=== PATIENT | male | born 1950 | race Caucasian/White ===

== ENCOUNTER 2023-05-13 10:45 | Outpatient (OUT) | payer MEDICARE, BC, SELFPAY ==
[2023-05-13 11:23] LABS: Basophils Absolute Auto 0.1 10^3/uL (0.0-0.1); Basophils Percent Auto 0.8 % (0.2-2.0); Eosinophils Absolute Auto 0.3 10^3/uL (0.0-0.7); Eosinophils Percent Auto 4.6 % (0.9-7.0); Hematocrit 48.9 % (42.0-54.0); Hemoglobin 16.6 g/dL (14.0-18.0); Immature Granulocytes Abs Auto 0.01 10^3/uL (0.00-0.03); Immature Granulocytes Pct Auto 0.2 % (0.0-0.5); Lymphocytes Absolute Auto 1.8 10^3/uL (1.2-3.8); Lymphocytes Percent Auto 26.9 % (20.5-60.0); Mean Corpuscular HGB Conc 33.9 g/dL (29.9-35.2); Mean Corpuscular Hemoglobin 30.8 pg (25.9-34.0); Mean Corpuscular Volume 90.7 fL (80.0-94.0); Mean Platelet Volume 10.1 fL (9.5-13.5); Monocytes Absolute Auto 0.5 10^3/uL (0.3-0.8); Monocytes Percent Auto 8.2 % (1.7-12.0); Neutrophils Absolute Auto 3.9 10^3/uL (1.4-6.5); Neutrophils Percent Auto 59.3 % (43.0-75.0); Platelet Count 257 10^3/uL (150-450); Red Blood Count 5.39 10^6/uL (4.70-6.10); Red Cell Distribution Width 12.2 % (11.0-15.0); White Blood Count 6.6 10^3/uL (4.0-11.0)
[2023-05-13 12:47] LABS: Anion Gap 11.9; BUN Creatinine Ratio 17.4; Calcium 9.5 mg/dL (8.5-10.1); Chloride 101 mmol/L (98-107); Estimated GFR (African America >60 (>=60); Estimated GFR (Non-African Ame >60 (>=60); Glucose 82 mg/dL (74-106); Potassium 3.9 mmol/L (3.5-5.1); Sodium 134 mmol/L (136-145)
[2023-05-13 13:38] LABS: Prostate Specific Antigen Scrn 1.19 ng/mL (<=4.00)
== END 2023-05-13 10:46 | disposition home or self-care (01) ==
LOC: LAB 10:49
PROVIDERS: PCP Internal Medicine; Visit Provider Internal Medicine
DX: Z12.5 Encounter for screening for malignant neoplasm of prostate (principal); I10 Essential (primary) hypertension; Z79.899 Other long term (current) drug therapy
CPT/HCPCS: 36415; 80048; 85025; G0103

== ENCOUNTER 2024-01-17 09:21 | Outpatient (OUT) | payer MEDICARE, BC, SELFPAY ==
--- NOTE | 2024-01-17 | XR_ITS ---
[facility] [id number] Patient Name: JG MCCLAIN MRN: [id number] date: 1950 Sex: M Assigned Patient Location: [facility] Current Patient Location: Accession/Order Number: [id number] Exam Date: 01/17/2024 09:45 Report Date: 01/19/2024 05:07 At the request of: RIKI LLANOS Procedure: XR hip LT 2V w/ pelvis PROCEDURE: XR hip LT 2V w/ pelvis HISTORY: Pain of left hip, low back pain COMPARISON: None. FINDINGS: BONES:Mild narrowing of the superior aspect of the left hip joint space compared to the right. Small degenerative osteophytes along the rim of the acetabulum bilaterally. No fracture dislocation. SOFT TISSUES:No visible soft tissue swelling. EFFUSION:None visible. OTHER: Negative. XR/XR hip LT 2V w/ pelvis IMPRESSION: 1. 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 Electronically authenticated by: LICO NIELSEN Date: 01/19/2024 05:07
--- NOTE | 2024-01-17 | XR_ITS ---
[facility] [id number] Patient Name: JG MCCLAIN MRN: [id number] date: 1950 Sex: M Assigned Patient Location: [facility] Current Patient Location: Accession/Order Number: [id number] Exam Date: 01/17/2024 09:45 Report Date: 01/19/2024 05:12 At the request of: RIKI LLANOS Procedure: XR lumbar spine 6V w bending EXAMINATION: XR lumbar spine 6V w bending HISTORY: M25.552 PAIN OF LEFT HIP, M54.50 LOW BACK PAIN COMPARISON: No relevant comparison available. FINDINGS: BONES: Mild grade 1 retrolisthesis of L2 on 3 and L3 on 4; stable between neutral, flexion, extension. Minimal grade 1 anterior listhesis of L4 on 5 which increases very slightly during flexion. No compression fracture or bone lesion. Mild degenerative facet arthropathy L4-L5, L5-S1. DISC SPACES: Slight narrowing L2-L3, L3-L4. Complete loss at L5-S1. PARASPINOUS: Negative. No paraspinous abnormality is seen. OTHER: Negative. XR/XR lumbar spine 6V w bending IMPRESSION: 1. Multilevel mild degenerative changes detailed above. 2. L5-S1 complete loss of disc space versus developmental partial sacralization. Electronically authenticated by: LICO NIELSEN Date: 01/19/2024 05:12
== END 2024-01-17 09:22 | disposition home or self-care (01) ==
LOC: RAD 09:23
PROVIDERS: PCP Internal Medicine; Visit Provider Internal Medicine
DX: M25.552 Pain in left hip (principal); M54.50 Low back pain, unspecified; M51.36 Other intervertebral disc degeneration, lumbar region
CPT/HCPCS: 72114; 73502

== ENCOUNTER 2024-02-14 09:11 | Outpatient (RCR) | payer MEDICARE, BC, SELFPAY | END 2024-02-28 12:24 | disposition home or self-care (01) | LOC: PT 09:11 | PROVIDERS: PCP Internal Medicine; Visit Provider Internal Medicine | DX: M54.50 Low back pain, unspecified (principal); M47.9 Spondylosis, unspecified; M16.9 Osteoarthritis of hip, unspecified | CPT/HCPCS: 97110; 97140; 97161; G0283 ==

== ENCOUNTER 2024-05-18 07:53 | Outpatient (OUT) | payer MEDICARE, BC, SELFPAY ==
--- OUTSIDE RECORDS SUMMARY | 2024-05-18 08:05 | XMS_ITS | CCD ---
Author Organization [facility] CliniSyvt Care Team Providers Care Law Professor Name Role Phone JONG, DR LYN Primary Care Unavailable BALL, DR LYN Admitting Unavailable BALL, DR LYN Attending Unavailable BALL, DR LYN Consulting Unavailable BALL, DR LYN Primary Care Unavailable ZIEBER, DR LICO Webb Consulting Unavailable MIGUELANGEL DC, DR SAMMIE Reeder Attending Unavailevy e MIGUELANGEL DC, DR SAMMIE Reeder Admitting Unavailabl e MIGUELANGEL DC, DR SAMMIE Reeder Consulting Unavailabl e JONG, DR LYN Primary Care Unavailable REQUEST, DR COLE LISTED Attending Unavaila ble REQUEST, DR COLE LISTED Consulting Unavaila ble REQUEST, DR COLE LISTED Admitting Unavaila ble Jong, Constantino Unavailable Allergies Allergy Classification Reported Allergen(s) Allergy Type Date of Onset Reaction(s) Facility (1 source) Sulfonamides (Antibiotic) Drug allergy (disorder) 02-03-20 13 [facility] Repository (10 sources) Ciprofloxacin; Translations: [ciprofloxacin] Drug Allergy 01-30-20 13 Unknown, Unknown Reaction [facility] Comment on above: Onset Date: 01/30/20 13 (5 sources) Substance with sulfonamide structure and antibacterial mechanism of action (substance) Drug allergy Unknown [employer] Other (3 sources) Sulf-10 Drug allergy 01-30-20 13 Unknown [employer] Other (2 sources) Sulfonamides (Antibiotic) Allergy to substance 01-17-20 24 [facility] Medications Current Medications Medication Drug Class(es) Dates Sig (Normalized) Sig (Original) sildenafil 100 mg oral tablet (5 sources) Phosphodiesterase 5 Inhibitor take 1 tablet by mouth every twenty-four hours Sildenafil Citrate 100 MG 1 tablet Orally Once a day for 30 days Active take 1 tablet by ángela th every twenty-four hours Sildenafil Citrate 20 MG 1 tablet Orally Once a day Active Completed/Discontinued Medications Medication Drug Class(es) Dates Sig (Normalized) Sig (Original) acetaminophen 325 mg / oxyCODONE hydrochloride 5 mg oral tablet (2 sources) Opioid Agonist Start: 07-16-2019 End: 09-25-2023 Oxycodone-Acetamin ophen 5-325 mg tablet Discontinued 5 MG PO As Directed as needed for Pain July 15, 2019 11:00pm September 25, 2023 7:33am cephalexin 500 mg oral capsule (2 sources) Cephalosporin Antibacterial Start: 07-16-2019 End: 09-25-2023 take 1 capsule by mouth every twelve hours Cephalexin 500 mg capsule Discontinued 500 MG PO Q12H July 16, 2019 4:00pm September 25, 2023 7:33am cycloSPORINE 0.5 mg/ml ophthalmic suspension (5 sources) Calcineurin Inhibitor Immunosuppressant take 1 drop(s) into the eye(s) twice daily as needed Restasis 0.05 % 1 drop into affected eye Ophthalmic Twice a day Not-Taking/PRN hydrocortisone 10 mg/ml / neomycin 3.5 mg/ml / polymyxin b 02309 unt/ml otic suspension (2 sources) Aminoglycoside Antibacterial, Polymyxin-class Antibacterial, Corticosteroid Start: 07-16-2019 End: 01-17-2024 Neomycin-Polymyxin -Hc 3.5-10,000-1 mg/mL-unit/mL-% drops,suspension Discontinued 3.5 MG OTIC As Directed July 15, 2019 11:00pm January 17, 2024 7:36am ibuprofen 600 mg oral tablet (2 sources) Nonsteroidal Anti-inflammatory Drug Start: 07-16-2019 End: 01-17-2024 Ibuprofen 600 mg tablet Discontinued 600 MG PO As Directed as needed for Pain July 15, 2019 11:00pm January 17, 2024 7:37am ketorolac tromethamine 10 mg oral tablet (2 sources) Nonsteroidal Anti-inflammatory Drug, Cyclooxygenase Inhibitor Start: 07-16-2019 End: 01-17-2024 take 1 tablet by mouth every six hours as needed for pain Ketorolac 10 mg tablet Discontinued 10 MG PO Q6H as needed for pain 20 15 July 15, 2019 11:00pm January 17, 2024 7:37am losartan potassium 100 mg oral tablet (11 sources) Angiotensin 2 Receptor Leanne Start: 07-16-2019 End: 09-25-2023 take 1 tablet by mouth once daily Losartan 100 mg tablet Discontinued 100 MG PO Daily 90 90 September 25, 2023 7:32am September 25, 2023 11:47am nitrofurantoin, macrocrystals 25 mg / nitrofurantoin, monohydrate 75 mg oral capsule (2 sources) Nitrofuran Antibacterial Start: 07-16-2019 End: 09-25-2023 Nitrofurantoin Monohyd/M-Cryst 100 mg capsule Discontinued 100 MG PO As Directed July 15, 2019 11:00pm September 25, 2023 7:33am ondansetron 8 mg disintegrating oral tablet (2 sources) Serotonin-3 Receptor Antagonist Start: 07-16-2019 End: 01-17-2024 Ondansetron 8 mg tablet,disintegrat ing Discontinued 8 MG PO As Directed July 15, 2019 11:00pm January 17, 2024 7:37am predniSONE 20 mg oral tablet (2 sources) Start: 01-17-2024 End: 05-14-2024 Prednisone 20 mg tablet Discontinued 20 MG PO As Directed January 16, 2024 11:00pm May 14, 2024 9:00am 1 tab tid w/ food x 3 days, then bid w/ food x 3 days, then qd w/ food x 3 days tamsulosin hydrochloride 0.4 mg oral capsule (2 sources) alpha-Adrenergic Leanne Start: 07-16-2019 End: 01-17-2024 take 1 capsule by mouth once daily Tamsulosin 0.4 mg capsule Discontinued 0.4 MG PO Daily July 15, 2019 11:00pm January 17, 2024 7:37am Problems Active Problems Problem Classification Problem Date Documented Date Episodic/Chronic Abdominal pain (6 sources) Right lower quadrant pain; Translations: [Right lower quadrant pain] Onset: 08-19-2014 Episodic Asthma (16 sources) Mild intermittent asthma; Translations: [Mild intermittent asthma, uncomplicated] Onset: [birth year]06-1957 Chronic Calculus of urinary tract (16 sources) Calculus of kidney; Translations: [History of calculus of kidney] Onset: 07-07-2020 Episodic Conditions associated with dizziness or vertigo (3 sources) Benign paroxysmal positional vertigo; Translations: [Benign paroxysmal vertigo, unspecified ear] Episodic Disorders of lipid metabolism (1 source) Hypercholesterolemia; Translations: [Pure hypercholesterolemia, unspecified] 05-14-2024 Chronic Diverticulosis and diverticulitis (9 sources) Diverticulosis of colon; Translations: [Diverticulosis of colon] Onset: 10-26-2014 Chronic Esophageal disorders (6 sources) Esophageal reflux finding; Translations: [Esophageal reflux] Onset: 08-06-2013 Chronic Essential hypertension (20 sources) Essential (primary) hypertension; Translations: [Essential hypertension] Onset: 01-20-2013 Chronic Genitourinary symptoms and ill-defined conditions (4 sources) Other microscopic hematuria; Translations: [Dysuria] Onset: 07-12-2020 Episodic Hyperplasia of prostate (10 sources) Benign prostatic hyperplasia with lower urinary tract symptoms; Translations: [Benign prostatic hypertrophy with outflow obstruction] Onset: 01-18-2016 Chronic Immunizations and screening for infectious disease (3 sources) Vaccination given; Translations: [Encounter for immunization] Episodic Other aftercare (2 sources) Other intermediate (current) drug therapy; Translations: [OTH [employer]CR[employer]ING [employer] DRIVER CURRENT DRUG THERAPY] Onset: 05-10-2021 Episodic Other aftercare (3 sources) Long-term current use of drug therapy; Translations: [Other longitudinal float operator (current) drug therapy] Episodic Other aftercare (1 source) Drug therapy finding; Translations: [Other longitudinal float operator (current) drug therapy] 05-14-2024 Episodic Other injuries and conditions due to external causes (3 sources) History of fall; Translations: [History of falling] Episodic Other male genital disorders (5 sources) Impotence of organic origin; Translations: [Erectile dysfunction due to arterial insufficiency] Chronic Other male genital disorders (2 sources) Erectile dysfunction due to arterial insufficiency Chronic Other non-traumatic joint disorders (2 sources) Hip pain; Translations: [Pain in left hip] 01-17-2024 Episodic Other non-traumatic joint disorders (1 source) Pain in left hip; Translations: [Pain in joint, pelvic region and thigh] 01-17-2024 Episodic Other nutritional; endocrine; and metabolic disorders (1 source) Morbid obesity; Translations: [Morbid (severe) obesity due to excess calories] Chronic Other nutritional; endocrine; and metabolic disorders (9 sources) Obesity; Translations: [Obesity, unspecified] Resolved: 05-03-2021 01-17-2024 Chronic Other nutritional; endocrine; and metabolic disorders (4 sources) Severe obesity; Translations: [Morbid (severe) obesity due to excess calories] Chronic Other nutritional; endocrine; and metabolic disorders (10 sources) Body mass index 30+ - obesity; Translations: [Body mass index (BMI) 37.0-37.9, adult] Onset: 01-18-2016 Chronic Other nutritional; endocrine; and metabolic disorders (2 sources) Morbid (severe) obesity due to excess calories Chronic Other nutritional; endocrine; and metabolic disorders (1 source) Body mass index (BMI) 37.0-37.9, adult Chronic Other nutritional; endocrine; and metabolic disorders (3 sources) Obese class II; Translations: [Body mass index 37.0-37.9, adult] Onset: 01-18-2016 Chronic Other nutritional; endocrine; and metabolic disorders (3 sources) Obesity, unspecified; Translations: [Obesity, unspecified] Chronic Other nutritional; endocrine; and metabolic disorders (1 source) Body mass index (BMI) 36.0-36.9, adult Chronic Other screening for suspected conditions (not mental disorders or infectious disease) (7 sources) Encounter for screening for malignant neoplasm of prostate; Translations: [Encounter for screening for diseases of the blood and blood-forming organs and certain disorders involving the immune mechanism] Onset: 05-10-2021 Episodic Comment on above: PSA: 1.2 - 04/2021, 1.74 - 05/2022, 1.19 - 05/2023 Residual codes; unclassified (1 source) Colon cancer screening declined; Translations: [Procedure and treatment not carried out because of patient's decision for unspecified reasons] 05-11-2024 Episodic Residual codes; unclassified (1 source) Procedure and treatment not carried out because of patient's decision for unspecified reasons; Translations: [Surgical or other procedure not carried out because of patient's decision] 05-14-2024 Episodic Spondylosis; intervertebral disc disorders; other back problems (4 sources) Lumbar spondylosis; Translations: [Spondylosis without myelopathy or radiculopathy, lumbar region] 01-17-2024 Chronic Spondylosis; intervertebral disc disorders; other back problems (3 sources) Low back pain; Translations: [Low back pain] 01-17-2024 Episodic Superficial injury; contusion (4 sources) Superficial foreign body of hand without major open wound AND without infection; Translations: [Superficial foreign body of right hand, initial encounter] Episodic Past or Other Problems Problem Classification Problem Date Documented Date Episodic/Chronic Acute bronchitis (3 sources) Acute bronchitis; Translations: [Acute bronchitis, unspecified] Onset: 04-19-2014 Episodic Inflammatory conditions of male genital organs (3 sources) Acute prostatitis; Translations: [Acute prostatitis] Resolved: 12-07-2019 Episodic Malaise and fatigue (3 sources) Malaise and fatigue; Translations: [Other malaise and fatigue] Onset: 04-19-2014 Episodic Neoplasms of unspecified nature or uncertain behavior (3 sources) Neoplasm of uncertain behavior of skin; Translations: [Neoplasm of uncertain behavior of skin] Onset: 08-29-2017 Episodic Other connective tissue disease (3 sources) Unspecified rotator cuff tear or rupture of unspecified shoulder, not specified as traumatic; Translations: [Unsp rotatr-cuff tear/ruptr of unsp shoulder, not trauma] Onset: 01-20-2013 Episodic Other connective tissue disease (3 sources) Nontraumatic rupture of rotator cuff of left shoulder; Translations: [Unspecified rotator cuff tear or rupture of left shoulder, not specified as traumatic] Onset: 01-20-2013 Episodic Other ear and sense organ disorders (3 sources) Otitis externa of bilateral ears; Translations: [Other otitis externa, bilateral] Resolved: 12-07-2019 Chronic Other lower respiratory disease (3 sources) Cough; Translations: [Cough, unspecified] Onset: 08-06-2013 Episodic Other non-traumatic joint disorders (3 sources) Shoulder joint pain; Translations: [Pain in joint, shoulder region] Onset: 01-20-2013 Episodic Other upper respiratory infections (3 sources) Acute sinusitis; Translations: [Acute sinusitis, unspecified] Onset: 04-19-2014 Episodic Skin and subcutaneous tissue infections (3 sources) Cellulitis of right upper limb; Translations: [Cellulitis of right upper limb] Resolved: 05-01-2021 Episodic Unclassified (3 sources) Vaccine product containing only acellular Bordetella pertussis and Clostridium tetani and Corynebacterium diphtheriae antigens (medicinal product); Translations: [Flykkjkjio-vcbiyft-v ertussis, combined [DTP] [DtaP]] Onset: 11-01-2014 Results Test Name Value Interpretation Reference Range Facility PSA SCREENING [facility]on 12-3 Prostate specific Ag [Mass/Vol] 1.2 ng/mL Normal 0.0-4.0 [facility] Comment on above: Result Comment: [place] FAN methodology. . According to the [place] [employer], Serum PSA should decrease and remain at undetectable levels after radical prostatectomy. The AUA defines biochemical recurrence as an initial PSA value 0.2 ng/mL or greater followed by a subsequent confirmatory PSA value 0.2 ng/mL or greater. Values obtained with different assay methods or kits cannot be used interchangeably. Results cannot be interpreted as absolute evidence of the presence or absence of malignant disease. Performed By: #### P SASCLC #### [facility] [address] [place] [address] Dr. Ivone Liu CBC AUTO DIFFon 05-03-2021 BASO # 0.0 103/ul Normal 0.0-0.1 [place] Comment on above: Performed By: #### C BC #### [facility] [address] [place] [address] Dr. Ivone Liu Basophils/100 WBC (Bld) 0.7 % Normal 0.2-2.0 [place] Comment on above: Performed By: #### C BC #### [facility] [address] [place] [address] Dr. Ivone Liu EO # 0.3 103/ul Normal 0.0-0.7 [place] Comment on above: Performed By: #### C BC #### [facility] [address] [place] [address] Dr. Ivone Liu Eosinophils/100 WBC (Bld) 5.1 % Normal 0.9-7.0 [facility] Comment on above: Performed By: #### C BC #### [facility] [address] [place] [address] Dr. Ivone Liu Erythrocyte distribution width (RBC) [Ratio] 12.8 % Normal 11.0-15.0 [facility] Comment on above: Performed By: #### C BC #### [facility] [address] [place] [address] Dr. Ivone Liu Hematocrit (Bld) [Volume fraction] 48.3 % Normal 42.0-54.0 [place] Comment on above: Performed By: #### C BC #### [facility] [address] [place] [address] Dr. Ivone Liu Hemoglobin (Bld) [Mass/Vol] 16.3 g/dL Normal 14.0-18.0 [place] Comment on above: Performed By: #### C BC #### [facility] [address] [place] [address] Dr. Ivone Liu IG # 0.01 10e3/ul Normal 0.00-0.03 [place] Comment on above: Performed By: #### C BC #### [facility] [address] [place] [address] Dr. Ivone Liu IG % 0.2 % Normal 0.0-0.5 [place] Comment on above: Performed By: #### C BC #### [facility] [address] [place] [address] Dr. Ivone Liu LYMPH # 1.6 103/ul Normal 1.2-3.8 [facility] Comment on above: Performed By: #### C BC #### [facility] [address] [place] [address] Dr. Ivone Liu Lymphocytes/100 WBC (Bld) 26.9 % Normal 20.5-60.0 [place] Comment on above: Performed By: #### C BC #### [facility] [address] [place] [address] Dr. Ivone Liu MANUAL DIFF REQ NO Normal [facility] Comment on above: Performed By: #### C BC #### [facility] [address] [place] [address] Dr. Ivone Liu MCH (RBC) [Entitic mass] 30.6 pg Normal 25.9-34.0 [facility] Comment on above: Performed By: #### C BC #### [facility] [address] [place] [address] Dr. Ivone Liu MCHC (RBC) [Mass/Vol] 33.7 g/dL Normal 29.9-35.2 [facility] Comment on above: Performed By: #### C BC #### [facility] [address] [address] [address] Ivone Liu MCV (RBC) [Entitic vol] 90.6 fL Normal 80.0-94.0 [place] Comment on above: Performed By: #### C BC #### [facility] [address] [address] [address] Ivone Liu MONO # 0.8 103/ul Normal 0.3-0.8 [facility] Comment on above: Performed By: #### C BC #### [facility] [address] [address] [address] Ivone Liu Monocytes/100 WBC (Bld) 12.4 % Critically high 1.7-12.0 [place] Comment on above: Performed By: #### C BC #### [facility] [address] [place] [address] Dr. Ivone Liu NEUT # 3.3 103/ul Normal 1.4-6.5 [place] Comment on above: Performed By: #### C BC #### [facility] [address] [place] [address] Dr. Ivone Liu Neutrophils/100 WBC (Bld) 54.7 % Normal 43.0-75.0 [place] Comment on above: Performed By: #### C BC #### [facility] [address] [place] [address] Dr. Ivone Liu Platelet mean volume (Bld) [Entitic vol] 9.5 fL Normal 9.5-13.5 [facility] Comment on above: Performed By: #### C BC #### [facility] [address] [place] [address] Dr. Ivone Liu PLT 274 103/ul Normal 150-450 [facility] Comment on above: Performed By: #### C BC #### [facility] [address] [place] [address] Dr. Ivone Liu RBC 5.33 106/ul Normal 4.70-6.10 [facility] Comment on above: Performed By: #### C BC #### [facility] [address] [place] [address] Dr. Ivone Liu WBC 6.1 103/ul Normal 4.0-11.0 [place] Comment on above: Performed By: #### C BC #### [facility] [address] [address] [address] Ivone Liu PROF CHEM 8 (BAS METB)on Anion gap [Moles/Vol] 13.6 mmol/L Normal [place] Comment on above: Performed By: #### B MP #### [facility] [address] [place] [address] Dr. Ivone Liu Calcium [Mass/Vol] 9.5 mg/dL Normal 8.4-10.2 [facility] Comment on above: Performed By: #### B MP #### [facility] [address] [place] [address] Dr. Ivone Liu Chloride [Moles/Vol] 103 mmol/L Normal 98-107 [place] Comment on above: Performed By: #### B MP #### [facility] [address] [place] [address] Dr. Ivone Liu CO2 [Moles/Vol] 26.5 mmol/L Normal 22.0-30.0 [facility] Comment on above: Performed By: #### B MP #### [facility] [address] [place] [address] Dr. Ivone Liu Creatinine [Mass/Vol] 0.96 mg/dL Normal 0.66-1.25 [facility] Comment on above: Performed By: #### B MP #### [facility] [address] [place] [address] Dr. Ivone Liu EGFR-AF CHILEAN >60 Normal >=60 [facility] Comment on above: Performed By: #### B MP #### [facility] [address] [place] [address] Dr. Ivone Liu EGFR-NON AF CHILEAN >60 Normal >=60 [facility] Comment on above: Performed By: #### B MP #### [facility] [address] [place] [address] Dr. Ivone Liu Glucose [Mass/Vol] 89 mg/dL Normal 74-106 [facility] Comment on above: Performed By: #### B MP #### [facility] [address] [address] [address] Ivone Liu Potassium [Moles/Vol] 4.1 mmol/L Normal 3.4-5.0 [place] Comment on above: Performed By: #### B MP #### [facility] [address] [address] [address] Ivone Liu Sodium [Moles/Vol] 139 mmol/L Normal 137-145 [facility] Comment on above: Performed By: #### B MP #### [facility] [address] [place] [address] Dr. Ivone Liu Urea nitrogen [Mass/Vol] 15.0 mg/dL Normal 9.0-20.0 [place] Comment on above: Performed By: #### B MP #### [facility] [address] [place] [address] Dr. Ivone Liu Urea nitrogen/Creatinin e [Mass ratio] 15.6 mg/mg Normal [place] Comment on above: Performed By: #### B MP #### [facility] [address] [place] [address] Dr. Ivone Liu Ambulatory Clinical Summaryo 08-02-2020 Ambulatory Clinical Summary {[id number] }[id number] Normal [facility] Patient Educationon 08-03-19 21 Patient Education Urology Kidney Stones Kidney stones are rock-like masses that form inside of the kidneys. Kidneys are organs that make pee (urine). A kidney stone may move into other parts of the urinary tract, including: ? The tubes that connect the kidneys to the bladder (ureters). ? The bladder. ? The tube that carries urine out of the body (urethra). Kidney stones can cause very bad pain and can block the flow of pee. The stone usually leaves your body (passes) through your pee. You may need to have a doctor take out the stone. What are the causes? Kidney stones may be caused by: ? A condition in which certain glands make too much parathyroid hormone (primary hyperparathyroidism). ? A buildup of a type of crystals in the bladder made of a chemical called uric acid. The body makes uric acid when you eat certain foods. ? Narrowing (stricture) of one or both of the ureters. ? A kidney blockage that you were born with. ? Past surgery on the kidney or the ureters, such as gastric bypass surgery. What increases the risk? You are more likely to develop this condition if: ? You have had a kidney stone in the past. ? You have a family history of kidney stones. ? You do not drink enough water. ? You eat a diet that is high in protein, salt (sodium), or sugar. ? You are overweight or very overweight (obese). What are the signs or symptoms? Symptoms of a kidney stone may include: ? Pain in the side of the belly, right below the ribs (flank pain). Pain usually spreads (radiates) to the groin. ? Needing to pee often or right away (urgently). ? Pain when going pee (urinating). ? Blood in your pee (hematuria). ? Feeling like you may vomit (nauseous). ? Vomiting. ? Fever and chills. How is this treated? Treatment depends on the size, location, and makeup of the kidney stones. The stones will often pass out of the body through peeing. You may need to: ? Drink more fluid to help pass the stone. In some cases, you may be given fluids through an IV tube put into one of your veins at the hospital. ? Take medicine for pain. ? Make changes in your diet to help keep kidney stones from coming back. Sometimes, medical procedures are needed to remove a kidney stone. This may involve: ? A procedure to break up kidney stones using a beam of light (laser) or shock waves. ? Surgery to remove the kidney stones. Follow these instructions at home: Medicines ? Take fxau-sqt-dawvaql and prescription medicines only as told by your doctor. ? Ask your doctor if the medicine prescribed to you requires you to avoid driving or using heavy machinery. Eating and drinking ? Drink enough fluid to keep your pee pale yellow. You may be told to drink at least 8?10 glasses of water each day. This will help you pass the stone. ? If told by your doctor, change your diet. This may include: ? Limiting how much salt you eat. ? Eating more fruits and vegetables. ? Limiting how much meat, poultry, fish, and eggs you eat. ? Follow instructions from your doctor about eating or drinking restrictions. General instructions ? Collect pee samples as told by your doctor. You may need to collect a pee sample: ? 24 hours after a stone comes out. ? 8?12 weeks after a stone comes out, and every 6?12 months after that. ? Strain your pee every time you pee (urinate), for as long as told. Use the strainer that your doctor recommends. ? Do not throw out the stone. Keep it so that it can be tested by your doctor. ? Keep all follow-up visits as told by your doctor. This is important. You may need follow-up tests. How is this prevented? To prevent another kidney stone: ? Drink enough fluid to keep your pee pale yellow. This is the best way to prevent kidney stones. ? Eat healthy foods. ? Avoid certain foods as told by your doctor. You may be told to eat less protein. ? Stay at a healthy weight. Where to find more information ? National Kidney Foundation (NKF): www.kidney.org ? [employer] (UCF): www.urologyhealth.org Contact a doctor if: ? You have pain that gets worse or does not get better with medicine. Get help right away if: ? You have a fever or chills. ? You get very bad pain. ? You get new pain in your belly (abdomen). ? You pass out (faint). ? You cannot pee. Summary ? Kidney stones are rock-like masses that form inside of the kidneys. ? Kidney stones can cause very bad pain and can block the flow of pee. ? The stones will often pass out of the body through peeing. ? Drink enough fluid to keep your pee pale yellow. This information is not intended to replace advice given to you by your health care provider. Make sure you discuss any questions you have with your health care provider. Document Released: 10/08/2008 Document Revised: 09/08/2019 Document Reviewed: 09/08/2019 [employer] Patient Education ? 2019 [employer] [facility] RAD - MISCon 08-02-2020 [facility] [id number]: 127 Normal Garcia [facility] Urology Office/Clinic Noteon 08-02-2020 Urology Office/Clinic Note Chief Complaint 6 month follow up HPI Staff Seth is a 69 y.o. male here for 6 month follow up Kidney stones. KUB done 07/07/20. No new stones or fragments. Previous dx: BPH w/ urinary obstruction, Hydronephrosis with ureteral calculus, Kidney stone, micro hematuria. S/P Cysto w/ stent removal done 07/27/19. No maintenance medications. Dysuria: Denies Incomplete bladder emptying: Denies Hematuria: Denies Frequency: Denies Urgency: Denies Nocturia: 1x a night Stream: Stream is average Leaking: Denies Post void dripping: Denies Wearing pads/ Depends: Denies Urge incontinence: Denies Stress incontinence: Denies Incontinence without Sensory Awareness: Denies Abdominal pain: Denies Flank pain: _ Sexual complaints: _ History of Present Illness Reviewed UA and kub. There have been no associated fever, chills, flank pain or blood in the urine. Pt. denies any pain/burning with urination at this time. Review of Systems PHQ Score Initial Depression Screen Score: 0 ROS - Provider Constitutional: denies weight loss, denies hot flashes. Eyes: denies eye problems. Gastrointestinal: denies nausea, denies vomiting. Cardiovascular: denies chest pain or angina. Integumentary: no dryness Musculoskeletal: denies musculoskeletal symptoms. ENMT: denies otolaryngeal symptoms. Respiratory: no shortness of breath. Heme/Lymph: denies easy bleeding tendency, denies easy bruising tendency. Psychiatric: no confusion, no anxiety. Genitourinary: denies dysuria, denies hematuria, denies discharge, denies urinary frequency, denies urinary hesitancy, mild nocturia, denies incontinence, denies genital sores, denies decreased libido, and denies erectile dysfunction. Physical Exam Vitals & Measurements HR: 60(Peripheral) BP: 140/80 HT: 178.0 cm HT: 178 cm WT: 120.2 kg WT: 120.20 kg BMI: 37.94 General Appearance: alert, no distress, well nourished, well developed male. Genitourinary: normal scrotum, normal testes, normal urethra, normal epididymis, normal vas deferens/spermatic cord. Flank Pain: none. Bladder: nonpalpable. Prostate: normal prostate, estimated weight 40 gms, no hard nodule observed. Assessment/Plan This patient has a history of renal calculi but no new stones were seen in this most recent KUB. He has not passed a stone since his last visit. Urinalysis today was negative for infection. Patient normally gets his PSA blood test on a yearly basis from this point care physician will continue. Rectal examination today was 40 g and benign. I plan will be to follow-up with another KUB x-ray in 1 year. 1. Kidney stone (N20.0: Calculus of kidney) S/p stone manip 07/16/2019. Pt. denies any stone issues at this time. Current KUB done on 07/07/20 shows no visible urinary tract calculi. All questions/concerns were discussed. Pt. to call the office if heencounters any issues prior. Pt. acknowledges understanding. Ordered: XR Abdomen 1 View 2. BPH with urinary obstruction (N40.1: Benign prostatic hyperplasia with lower urinary tract symptoms) Pt. is not on any BPH meds. at this time and is doing well overall w/ his urination w/ no bothersome symptoms. BEST today - 40gms, no hard nodules. Pt. obtains yearly PSA checks w/ Dr. Sunshine. Ordered: XR Abdomen 1 View 3. Microscopic hematuria (R31.29: Other microscopic hematuria) UA today - neg. reviewed urinalysis today with patient. No evidence of blood. This may be related to the fact that no stones were seen on his KUB. Ordered: XR Abdomen 1 View 4. Smoker (F17.200: Nicotine dependence, unspecified, uncomplicated) We discussed smoking cessation I recommend Orders: Urnls Dip Stick Auto w/o Microscopy POC 75080 I have reviewed the previous health record information and history for this pt. from Dr. Means. Follow-up With When Contact Information Miguelangel Hernandez MD, Sammie Reeder [facility] [employer] [place] [address]- Additional Instructions: 1yr. kub Patient Education Kidney Stones, [id number] IPhyllis , personally scribed for Dr. Means on 08/02/2020 08:44:49. . Documentation recorded by the scribe, Diana Rebolledo, accurately reflects the services(s) I performed and decisions made by me. Authenticated by Dr. Means on 08/02/2020 09:10:42. Problem List/Past Medical History Ongoing Abdominal pain BPH with urinary obstruction Foreign body in bladder Hydronephrosis with ureteral calculus Kidney stone Microscopic hematuria Smoker Historical hypercholestrol Procedure/Surgical History Cystoscopic removal of ureteric stent (07/27/2019), Cystoscopy (07/16/2019), Arthroscopic repair of rotator cuff, Colonoscopy, Ts - Tonsillectomy. Medications losartan 100 mg Tab, Oral, Daily Naprosyn 500 mg Tab, 500 mg= 1 tab(s), Oral, BID Percocet 325 mg-5 mg Tab, 1 tab(s), Oral, q4hr, PRN, Not taking Restasis, 1 drop(s), Eye-Both, BID tamsulosin 0.4 mg Cap, Oral, Daily, Not taking Allergies sulfa drugs (Unknown) Social History Alcohol - Low Risk, 07/16/2019 Tobacco - High Risk, 07/16/2019 5-9 cigarettes (between 1/4 to 1/2 pack)/day in last 30 days Tobacco Use:. Previous treatment: Counseling. Yes, 08/02/2020 Smoker, current status unknown Tobacco Use:. Cigars, Yes, 07/16/2019 Family History Family history is unknown Immunizations Vaccine Date Status SARS-CoV-2 (COVID-19) mRNA-1273 vaccine 07/22/2020 Recorded influenza virus vaccine, inactivated 02/2020 Recorded Lab Results Ambulatory Point of Care Results Bilirubin Urine Dipstick: Negative (08/02/20 08:20:00) Blood Urine Dipstick: Negative (08/02/20 08:20:00) Glucose Urine Dipstick: Negative (08/02/20 08:20:00) Ketones Urine Dipstick: Negative (08/02/20 08:20:00) Leukocytes Urine Dipstick: Negative (08/02/20 08:20:00) Nitrite Urine Dipstick: Negative (08/02/20 08:20:00) Protein Urine Dipstick: Negative (08/02/20 08:20:00) Specific [place] Urine Dipstick: 1.025 (08/02/20 08:20:00) Urine Appearance Urine Dipstick: Clear (08/02/20 08:20:00) Urine Color Urine Dipstick: Yellow (08/02/20 08:20:00) Urobilinogen Urine Dipstick: Normal 0.2-1 EU/dl (08/02/20 08:20:00) pH Urine Dipstick: 5.5 (08/02/20 08:20:00) Diagnostic Results Review of KUB showed no new renal calculi. Review of urinalysis shows no evidence of infection. Normal [facility] Comment on above: Result Comment: Elec tronically Signed By: Miguelangel Hernandez MD, Sammie Reeder\.br\Date and Time Signed: 08/02/20 09:11 EDT\.br\Electronically Co-Signed By: Phyllis Hargrove MA\.br\Date and Time Co-Signed: 08/02/20 08:45 EDT XR KUB 1 VIEWon 07-07-2020 XR KUB 1 VIEW EXAMINATION: XR KUB 1 VIEW HISTORY: Kidney stone COMPARISON: No relevant comparison available. FINDINGS: KIDNEY/URETER - RIGHT: No visible renal or ureteral calcifications. KIDNEY/URETER - LEFT: No visible renal or ureteral calcifications. PELVIS: No visible ureteral stones. Stable pelvic calcifications compatible with phleboliths. BOWEL: No abnormal dilation or deviation. BONES: No acute abnormality. OTHER: Negative. No abnormal gaseous collections. IMPRESSION: 1. No visible urinary tract calculi. Electronically authenticated by: LICO NIELSEN Date: 2020-07-07 10:27 Normal [place] [facility] - MIS [id number]: 127 Normal [facility] Ambulatory Clinical Summaryo n 01-12-2020 Ambulatory Clinical Summary {[id number] }CD:[id number] Normal [facility] Patient Educationon 01-07-20 20 Patient Education Family Medicine Benign Prostatic Hypertrophy The prostate gland is part of the reproductive system of men. A normal prostate is about the size and shape of a walnut. The prostate gland makes a fluid that is mixed with sperm to make semen. This gland surrounds the urethra and is located in front of the rectum and just below the bladder. The bladder is where urine is stored. The urethra is the tube through which urine passes from the bladder to get out of the body. The prostate grows as a man ages. An enlarged prostate not caused by cancer is called benign prostatic hypertrophy (BPH). This is a common health problem in men over age 50. This condition is a normal part of aging. An enlarged prostate presses on the urethra. This makes it harder to pass urine. In the early stages of enlargement, the bladder can get by with a narrowed urethra by forcing the urine through. If the problem gets worse, medical or surgical treatment may be required. This condition should be followed by your caregiver. Longstanding back pressure on the kidneys can cause infection. Back pressure and infection can progress to bladder damage and kidney (renal ) failure. If needed, your caregiver may refer you to a specialist in kidney and prostate disease (urologist ). CAUSES The exact cause is not known. SYMPTOMS ? You are not able to completely empty your bladder. ? Getting up often during the night to urinate. ? Need to urinate frequently during the day. ? Difficultly in starting urine flow. ? Decrease in size and strength of the urine stream. ? Dribbling after urination. ? Pain on urination (more common with infection). ? Inability to pass your water. This needs immediate treatment. DIAGNOSIS These tests will help your caregiver understand your problem: ? Digital rectal exam (BEST). In a rectal exam, your caregiver checks your prostate by putting a gloved, lubricated finger into the rectum to feel the back of your prostate gland. This exam detects the size of the gland and abnormal lumps or growths. ? Urinalysis (exam of the urine). This may include a culture if there is concern about infection. ? Prostate Specific Antigen (PSA). This is a blood test used to screen for prostate cancer. It is not used alone for diagnosing prostate cancer. ? Rectal ultrasound (sonogram). This test uses sound waves to electronically produce a picture of the prostate. It helps examine the prostate gland for cancer. TREATMENT Mild symptoms may not need treatment. Simple observation and yearly exams may be all that is required. Medications and surgery are options for more severe problems. Your caregiver can help you make an informed decision for what is best. Two classes of medications are available for relief of prostate symptoms: ? Medications that shrink the prostate. This helps relieve symptoms. ? Uncommon side effects include problems with sexual function. ? Medications to relax the muscle of the prostate. This also relieves the obstruction. ? Side effects can include dizziness, fatigue, lightheadedness, and retrograde ejaculation (diminished volume of ejaculate). Several types of surgical treatments are available for relief of prostate symptoms: ? Transurethral resection of the prostate (TURP). In this treatment, an instrument is inserted through opening at the tip of the penis. It is used to cut away pieces of the inner core of the prostate. The pieces are removed through the same opening of the penis. This removes the obstruction and helps get rid of the symptoms. ? Transurethral incision (TUIP). In this procedure, small cuts are made in the prostate. This lessens the prostates pressure on the urethra. ? Transurethral microwave thermotherapy (TUMT). This procedure uses microwaves to create heat. The heat destroys and removes a small amount of prostate tissue. ? Transurethral needle ablation (TUNA). This is a procedure that uses radio frequencies to do the same as TUMT. ? Interstitial laser coagulation (ILC). This is a procedure that uses a laser to do the same as TUMT and TUNA. ? Transurethral electrovaporization (TUVP). This is a procedure that uses electrodes to do the same as the procedures listed above. Regardless of the method of treatment chosen, you and your caregiver will discuss the options. With this knowledge, you along with your caregiver can decide upon the best treatment for you. SEEK MEDICAL CARE IF: ? You develop chills, fever of 100.5? F (38.1? C), or night sweats. ? There is unexplained back pain. ? Symptoms are not helped by medications prescribed. ? You develop medication side effects. ? Your urine becomes very dark or has a bad smell. SEEK IMMEDIATE MEDICAL CARE IF: ? You are suddenly unable to urinate. This is an emergency. You should be seen immediately. ? There are large amounts of blood or clots in the urine. ? Your urinary problems become unmanageable. ? You develop lightheadedness, severe dizziness, or you feel faint. ? You develop moderate to severe low back or flank pain. ? You develop chills or fever. Document Released: 04/22/2006 Document Revised: 07/14/2012 Document Reviewed: 01/12/2008 ExitCare? Patient Information ?2013 [employer] Urology Office/Clinic Noteon 01-07-2020 Urology Office/Clinic Note Chief Complaint 6 month w/ KUB This patient is a 69-year-old gentleman with a history of ureteral calculi. He is here today with a follow-up KUB x-ray for review. At present patient states he is doing quite well and he has no new stones. HPI Staff Pt is here for a 6 month KUB. KUB was done 12/08/19 and no viable urinary tract calculi. Pt had a Stone Manip. done 07/16/19. Pt states that he stopped the flomax in July due to having trouble seeing and he said that things are back to normal. Pt states that he has not had any issues with stones since the procedure. Dysuria: no pain or burning Incomplete bladder emptying: for the most part he feels like hes emptying Hematuria: denies any blood in urine, TRACE in sample Frequency: normal Urgency: no Nocturia: 1x due to getting up at 4am for the past 40years Stream: average stream, no hesitation, no intermittent stream. Leaking: no Post void dripping: no Wearing pads/ Depends: no Urge incontinence: no Stress incontinence: no Incontinence without Sensory Awareness: no issues Abdominal pain: no issues with stones History of Present Illness Reviewed UA and KUB. There have been no associated fever, chills, flank pain or blood in the urine. Pt. denies any pain/burning with urination at this time. Review of Systems PHQ Score Initial Depression Screen Score: 0 ROS - Provider Constitutional: denies weight loss, denies hot flashes. Eyes: denies eye problems. Gastrointestinal: denies nausea, denies vomiting. Cardiovascular: denies chest pain or angina. Integumentary: no dryness Musculoskeletal: denies musculoskeletal symptoms. ENMT: denies otolaryngeal symptoms. Respiratory: no shortness of breath. Heme/Lymph: denies easy bleeding tendency, denies easy bruising tendency. Psychiatric: no confusion, no anxiety. Genitourinary: denies dysuria, denies hematuria, denies discharge, denies urinary frequency, denies urinary hesitancy, denies nocturia, denies incontinence, denies genital sores, denies decreased libido, and denies erectile dysfunction. Physical Exam Vitals & Measurements HR: 68(Peripheral) RR: 18 BP: 158/92 HT: 178.0 cm HT: 178 cm WT: 116.0 kg WT: 116 kg BMI: 36.61 General Appearance: alert, no distress, well nourished, well developed male. Flank Pain: none. Bladder: nonpalpable. Assessment/Plan The patient is doing quite well post stone manipulation and stent stone removal. His urinalysis is unremarkable and he has not passed a stone since his last visit. He is no longer taking Flomax for his prostatic hyperplasia and follows up with his primary care doctor on a yearly basis for PSA test. We will plan to see him back in the office in 6 months with another KUB x-ray. He will contact our office if he should have any more stones or any stone related problems. 1. Kidney stone (N20.0: Calculus of kidney) S/p stone manip. 07/16/2019. Most current KUB done 12/08/2019 that shows no viable urinary tract calculi. Pt. denies any issues since the procedure. All questions/concerns were discussed. Pt. to call the office if heencounters any issues prior. Pt. acknowledges understanding. Pt. is doing well and will f/u in 6 mos. w/ another KUB. 2. BPH with urinary obstruction (N40.1: Benign prostatic hyperplasia with lower urinary tract symptoms) Pt. d/c Flomax (prescribed by Dr. Sunshine) in 07/2019 due to not being able to see well. Pt. is doing well overall w/ his urination w/ no major issues/concerns. 3. Microscopic hematuria (R31.29: Other microscopic hematuria) UA today shows a TRACE amount of blood. I have reviewed the previous health record information and history for this pt. from Dr. Means. Follow-up With When Contact Information Miguelangel Hernandez MD, Sammie Reeder In [address] [place] [address]- Additional Instructions: w KUB Patient Education Benign Prostatic Hypertrophy I, Phyllis Hargrove , personally scribed for Dr. Means on 01/07/2020 09:34:16. . Documentation recorded by the scribe, Phyllis Hargrove, accurately reflects the services(s) I performed and decisions made by me. Authenticated by Dr. Means on 01/07/2020 10:02:26. Problem List/Past Medical History Ongoing Abdominal pain BPH with urinary obstruction Foreign body in bladder Hydronephrosis with ureteral calculus Kidney stone Microscopic hematuria Smoker Historical hypercholestrol Procedure/Surgical History Cystoscopic removal of ureteric stent (07/27/2019), Cystoscopy (07/16/2019), Arthroscopic repair of rotator cuff, Colonoscopy, Ts - Tonsillectomy. Medications losartan 100 mg Tab, Oral, Daily Naprosyn 500 mg Tab, 500 mg= 1 tab(s), Oral, BID Percocet 325 mg-5 mg Tab, 1 tab(s), Oral, q4hr, PRN, Not taking Restasis, 1 drop(s), Eye-Both, BID tamsulosin 0.4 mg Cap, Oral, Daily, Not taking Allergies sulfa drugs (Unknown) Social History Alcohol - Low Risk, 07/16/2019 Tobacco - High Risk, 07/16/2019 5-9 cigarettes (between 1/4 to 1/2 pack)/day in last 30 days Tobacco Use:. Yes, 01/07/2020 Smoker, current status unknown Tobacco Use:. Cigars, Yes, 07/16/2019 Family History Family history is unknown Lab Results Ambulatory Point of Care Results Bilirubin Urine Dipstick: Negative (01/07/20 08:45:00) Blood Urine Dipstick: Trace-intact (01/07/20 08:45:00) Glucose Urine Dipstick: Negative (01/07/20 08:45:00) Ketones Urine Dipstick: Negative (01/07/20 08:45:00) Leukocytes Urine Dipstick: Negative (01/07/20 08:45:00) Nitrite Urine Dipstick: Negative (01/07/20 08:45:00) Protein Urine Dipstick: Negative (01/07/20 08:45:00) Specific [place] Urine Dipstick: 1.025 (01/07/20 08:45:00) Urine Appearance Urine Dipstick: Clear (01/07/20 08:45:00) Urine Color Urine Dipstick: Yellow (01/07/20 08:45:00) Urobilinogen Urine Dipstick: Normal 0.2-1 EU/dl (01/07/20 08:45:00) pH Urine Dipstick: 7 (01/07/20 08:45:00) Diagnostic Results Review of urinalysis shows no infection. Review of KUB x-ray shows no evidence of any new stones. Normal [facility] Comment on above: Result Comment: Elec tronically Signed By: Miguelangel Hernandez MD, Sammie Reeder\.br\Date and Time Signed: 01/07/20 10:02 EDT\.br\Electronically Co-Signed By: Phyllis Hargrove MA\.br\Date and Time Co-Signed: 01/07/20 09:34 EDT Vital Signs Date Time Vital Sign Value Performing Clinician Facility 05-14-2024 09:03-0500 Body height 177.8 cm [facility] 05-14-2024 09:03-0500 Body mass index (BMI) [Ratio] 37.4 kg/m2 [facility] 05-14-2024 09:03-0500 Body weight 118.38 kg [facility] 05-14-2024 09:03-0500 Diastolic blood pressure 89 mm[Hg] [facility] 05-14-2024 09:03-0500 Heart rate 76 /min [facility] 05-14-2024 09:03-0500 Respiratory rate 12 /min [facility] 05-14-2024 09:03-0500 Systolic blood pressure 139 mm[Hg] [facility] 01-17-2024 08:37-0400 Body height 177.8 cm [facility] 01-17-2024 08:37-0400 Body mass index (BMI) [Ratio] 35.7 kg/m2 [facility] 01-17-2024 08:37-0400 Body weight 112.94 kg [facility] 01-17-2024 08:37-0400 Diastolic blood pressure 94 mm[Hg] [facility] 01-17-2024 08:37-0400 Heart rate 67 /min [facility] 01-17-2024 08:37-0400 Respiratory rate 16 /min [facility] 01-17-2024 08:37-0400 Systolic blood pressure 142 mm[Hg] [facility] 05-13-2023 09:00-0500 Body height 177.8 cm Constantino Ball Other [facility] [employer] Other 05-13-2023 09:00-0500 Body mass index (BMI) [Ratio] 36.99 kg/m2 Constantino Ball Other [facility] [employer] Other 05-13-2023 09:00-0500 Body weight 116.94 kg Constantino Ball Other [employer] Other 05-13-2023 09:00-0500 Diastolic blood pressure 85 mm[Hg] Constantino Ball Other [employer] Other 05-13-2023 09:00-0500 Respiratory rate 12 /min Constantino Ball Other [employer] Other 05-13-2023 09:00-0500 Systolic blood pressure 135 mm[Hg] Constantino Ball Other [employer] Other 10-08-2022 09:00-0400 Body height 177.8 cm Constantino Ball Other [employer] Other 10-08-2022 09:00-0400 Body mass index (BMI) [Ratio] 37.27 kg/m2 Constantino Ball Other [employer] Other 10-08-2022 09:00-0400 Body weight 117.85 kg Constantino Ball Other [employer] Other 10-08-2022 09:00-0400 Diastolic blood pressure 80 mm[Hg] Constantino Sunshine Other [employer] Other 10-08-2022 09:00-0400 Respiratory rate 12 /min Constantino Sunshine Other [employer] Other 10-08-2022 09:00-0400 Systolic blood pressure 139 mm[Hg] Constantino Sunshine Other [employer] Other Encounters Encounter Date Encounter Type Care Provider Facility Start: 05-14-2024 End: 05-14-2024 ambulatory [facility] Work Phone: Start: 05-14-2024 End: 05-14-2024 Patient encounter procedure [facility] Work Phone: Start: 05-11-2024 Patient encounter procedure [facility] Start: 01-17-2024 End: 01-17-2024 ambulatory [facility] Work Phone: Start: 01-17-2024 End: 01-17-2024 Patient encounter procedure [facility] [facility] Work Phone: Start: 05-14-2023 End: 05-14-2023 ambulatory Constantino Sunshine Other [employer] Other Start: 05-14-2023 Telephone encounter Constantino Sunshine [facility] Start: 05-13-2023 End: 05-13-2023 ambulatory Constantino Sunshine Other [employer] Other Start: 05-13-2023 Patient encounter procedure Constantino Sunshine [facility] Start: 05-13-2023 Telephone encounter Consatntino Sunshine [facility] Start: 10-08-2022 End: 10-08-2022 ambulatory Constantino Sunshine Other [employer] Other Start: 10-08-2022 Office outpatient vi sit 25 minutes Constantino Sunshine [facility] Start: 05-15-2022 End: 05-15-2022 ambulatory Constantino Sunshine Other [employer] Other Start: 05-15-2022 Telephone encounter Constantino Sunshine [facility] Start: 05-03-2021 Adult health examination Constantino Sunshine Other [employer] Other Start: 05-03-2021 End: 05-04-[address] CONSTANTINO SUNSHINE Facility:[facility] Start: 07-07-2020 End: 07-08-[address] CONSTANTINO SUNSHINE Facility:[facility] Start: 06-30-2020 End: 07-01-[address] CONSTANTINO SUNSHINE Facility:[facility] Procedures Date Procedure Procedure Detail Performing Clinician Start: 04-07-2018 Hyperlipidemia screening Constantino Sunshine Other Start: 04-07-2018 Screening for malign ant neoplasm of colon Constantino Sunshine Other Start: 04-09-2017 Screening for malign ant neoplasm of prostate Constantino Sunshine Other Start: 01-18-2016 General examination of patient Constantino Sunshine Other Depression screening Mandi Sunshine Other Screening for malign ant neoplasm of prostate Constantino Sunshine Other Plan of Treatment Date Care Activity Detail Author Comprehensive metabo lic 2000 panel - Serum or Plasma [facility] Patient Education Low back pain in adults [facility] Work Phone: XR Hip - left 2 Views [facility] XR Lumbar spine Views [facility] Immunizations Immunization Date Immunization Notes Care Provider Ezra landis 02-27-2022 influenza virus vaccine, split virus (incl. purified surface antigen) Constantino Sunshine Other [employer] Other 02-27-2022 influenza virus vaccine, unspecified formulation [facility] 02-13-2021 influenza virus vaccine, split virus (incl. purified surface antigen) Constantino Sunshine Other [facility] [employer] Other 02-13-2021 influenza virus vaccine, unspecified formulation [facility] 01-21-2020 influenza virus vaccine, split virus (incl. purified surface antigen) Constantino Sunshine Other [facility] [employer] Other 01-21-2020 influenza virus vaccine, unspecified formulation [facility] 04-27-2019 pneumococcal polysaccharide vaccine, 23 valent Constantino Sunshine Other [facility] 04-07-2018 pneumococcal conjuga te vaccine, 13 valent Constantino Sunshine Other [facility] 04-07-2018 pneumococcal Conjuga te, unspecified formulation; Translations: [Need for prophylactic vaccination against Streptococcus pneumoniae (pneumococcus)] Constantino Jong Other [facility] [employer] Other 11-01-2014 diphtheria, tetanus toxoids and acellular pertussis vaccine, unspecified formulation Constantino Sunshine Other [facility] Payers Date Payer Category Payer Medicare [id number] 1957 Self-pay 1957 Unknown [id number] 1950 Unknown [id number] 1950 Unknown [id number] Unknown [id number] Social History Date Type Detail Facility Sex Assigned At [facility] [employer] Other Start: 07-16-2019 End: 07-16-2019 Tobacco smoking status NHIS Never smoked tobacco (finding) [facility] Start: 1950 Sex Assigned At Male F [facility] Start: 05-14-2024 Sex Male (finding) [facility] Medical Equipment Procedure Code Equipment Code Equipment Origin al Text Equipment Identifier Dates Cystoscopy, with ureteral calculus manipulation and stent placement Polymeric ureteral stent ([id number] FDA Start: 07-16-2019 Evaluation note 05-13-2023 Note Date & Type Note Facility 05-13-2023 Evaluation note Encounter Date Diagnosis Assessment Notes May, Medicare annual wellness visit, subsequent (ICD-10 - Z00.00) Personalized health advice was given to the beneficiary including a written plan for screenings discussed and provided. Advanced care planning reviewed and/or information given as requested. Additional counseling was provided here today in regards to, [ ]. The above visit was performed by [ ], under direct supervision of [ ]. Document reviewed and amended by provider signed below. May, Essential hypertension (ICD-10 - I10) This patient is instructed to consume a healthy, low-fat, low-salt diet. They are also encouraged to continue exercise to achieve/maintain a normal BMI. May, Intermittent asthma without complication (ICD-10 - J45.20) No ER visits for AE. Use of KARLA rarely Avoid smoke, fumes and dust. Allergy treatment during seasonal changes May, Erectile dysfunction due to arterial insufficiency (ICD-10 - N52.01) Sildenafil as needed. Due to age, medications and arterial insufficiency May, Obesity (BMI 30-39.9) (ICD-10 - E66.9) May, High risk medication use (ICD-10 - Z79.899) May, Screening PSA (prostate specific antigen) (ICD-10 - Z12.5) Yearly BEST and PSA May, Morbid (severe) obesity due to excess calories (ICD-10 - E66.01) This patient has been instructed on a low-fat, high-fiber diet. They are instructed to reduce calories, portion sizes and snacks. It is recommended that they exercise for 30 minutes, 3-5 times weekly. May, Body mass index [BMI] 36.0-36.9, adult (ICD-10 - Z68.36) [employer] Other Evaluation note 05-13-2023 Note Date & Type Note Facility 05-13-2023 Evaluation note Encounter Date Diagnosis Assessment Notes May, Erectile dysfunction due to arterial insufficiency (ICD-10 - N52.01) [employer] Other Evaluation note 10-08-2022 Note Date & Type Note Facility 10-08-2022 Evaluation note Encounter Date Diagnosis Assessment Notes Oct, Primary hypertension (ICD-10 - I10) This patient is instructed to consume a healthy, low-fat, low-salt diet. They are also encouraged to continue exercise to achieve/mainta in a normal BMI. Oct, Intermittent asthma without complication (ICD-10 - J45.20) Treat allergies, PND, GERD for now. Declines KARLA for intermittent cough. Denies dyspnea or wheezing Nonproductive Oct, Morbid (severe) obesity due to excess calories (ICD-10 - E66.01) This patient has been instructed on a low-fat, high-fiber diet. They are instructed to reduce calories, portion sizes and snacks. It is recommended that they exercise for 30 minutes, 3-5 times weekly. Oct, Body mass index [BMI] 37.0-37.9, adult (ICD-10 - Z68.37) Oct, History of nephrolithiasis (ICD-10 - Z87.442) Push fluids, no recent attacks. [employer] Other Evaluation note Note Date & Type Note Facility Evaluation note No Information [facility] Other Evaluation note Note Date & Type Note Facility Evaluation note Diagnosis Onset Date Left hip pain acute Low back pain acute Lumbar spondylosis acute Obesity acute [facility] Work Phone: Evaluation note Note Date & Type Note Facility Evaluation note Diagnosis Onset Date Resolution Colon cancer screening declined acute May 14 8:49am Hypertension acute May 14, 2024 8:49am Lumbar spondylosis acute Januar 2024 8:49am Medicare annual wellness visit, subsequent acute May 14 8:49am Obesity acute May 14, 025 8:49am Screening PSA (prostate specific antigen) acute May 14 025 8:49am [facility] Work Phone: History general Narrative - Reported Note Date & Type Note Facility History general Narrative - Reported Type Medical History Obesity (BMI 30-39.9) Medical History Erectile dysfunction due to arterial insufficiency Medical History History of nephrolithiasis Medical History Intermittent asthma without complication Medical History Essential hypertension Medical History Morbid obesity Medical History Splinter of right hand Surgical History Cystoscopy with inse rtion of stent 07/17/2019 Surgical History Cystoscopy/stone extraction/walker nt 01/29/2013 Surgical History Colonoscopy 2008 Hospitalization History see surgical history [employer] Other Summary Purpose Family History Relationship Condition Age at Onset Recorded Date/T rod Not Specified No pertinent family history Unknown father Unknown Heart disease Unknown Advance Directives Advance Directive Response Recorded Date/ Time Advance Directives No July 15 2:08pm Advance Directive Response Recorded Date/ Time Advance Directives No July 15 1:08pm Chief Complaint and Reason for Visit Chief Complaint sciatica pain Reason for Visit Left hip pain Low back pain Lumbar spondylosis Obesity Chief Complaint Admit Date Wellness May 14, 2024 8: 49am Reason for Visit Admit Date Colon cancer screening declined May 14, 2024 8:49am Hypertension May 14, 2024 8: 49am Lumbar spondylosis May 14, 2024 8: 49am Medicare annual wellness visit, subseque nt May 14, 2024 8:49am Obesity May 14, 2024 8: 49am Screening PSA (prostate specific antigen ) May 14, 2024 8:49am Additional Source Comments (unrecognized sect ion and content) No Status Records FoundNo Status Records Found INFORMATION SOURCE (unrecogn ized section and content) DATE CREATED 08/03/[address] [facility] DATE CREATED AUTHOR 'S ORGANIZ ATION 05/11/2021 [employer] [facility] REASON FOR VISIT (unrecogniz ed section and content) Lab Results6 month Follow up wellnessLab resultsrefill Care Teams (unrecognized sec tion and content) Team Status: Active Member Role Status Dates Constantino Sunshine DO Primary Care Provider Active Team Status: Inactive Member Role Status Dates Constantino Sunshine DO Primary Care Provide r, Attending Provider Active Start: January 17, 2024 End: January 17, 2024 Team Status: Inactive Member Role Status Dates Constantino Sunshine DO Primary Care Provide r, Attending Provider Active Start: May 14, 2024 End: May 14, 2024 Goals (unrecognized section and content) Goals may be documented in a n alternate section FOR RECORDS PERTAINING TO PATIENTS WHO ARE OR HAVE BEEN ENROLLED IN A CHEMICAL DEPENDENCY/SUBSTANCEABUSE PROGRAM, SOME INFORMATION MAY BE OMITTED. This clinical summary was aggregated from multiple sources. Caution should be exercised in using it in the provision of clinical care. This summary normalizes information from multiple sources, and as a consequence, information in this document may materially change the coding, format and clinical context of patient data. In addition, data may be omitted in some cases. CLINICAL DECISIONS SHOULD BE BASED ON THE PRIMARY CLINICAL RECORDS. [facility] [employer] [facility]. provides no warranty or guarantee of the accuracy or completeness of information in this document.
[2024-05-18 08:22] LABS: Basophils Absolute Auto 0.1 10^3/uL (0.0-0.1); Basophils Percent Auto 1.1 % (0.2-2.0); Eosinophils Absolute Auto 0.4 10^3/uL (0.0-0.7); Eosinophils Percent Auto 5.9 % (0.9-7.0); Hematocrit 48.3 % (42.0-54.0); Hemoglobin 16.5 g/dL (14.0-18.0); Immature Granulocytes Abs Auto 0.01 10^3/uL (0.00-0.03); Immature Granulocytes Pct Auto 0.1 % (0.0-0.5); Lymphocytes Absolute Auto 2.3 10^3/uL (1.2-3.8); Lymphocytes Percent Auto 32.4 % (20.5-60.0); Mean Corpuscular HGB Conc 34.2 g/dL (29.9-35.2); Mean Corpuscular Hemoglobin 31.1 pg (25.9-34.0); Mean Platelet Volume 9.5 fL (9.5-13.5); Monocytes Absolute Auto 0.7 10^3/uL (0.3-0.8); Monocytes Percent Auto 9.8 % (1.7-12.0); Neutrophils Absolute Auto 3.6 10^3/uL (1.4-6.5); Neutrophils Percent Auto 50.7 % (43.0-75.0); Platelet Count 245 10^3/uL (150-450); Red Blood Count 5.31 10^6/uL (4.70-6.10); White Blood Count 7.2 10^3/uL (4.0-11.0)
[2024-05-18 10:14] LABS: Alanine Aminotransferase 33 U/L (16-63); Albumin Globulin Ratio 0.9; Albumin Level 3.7 g/dL (3.4-5.0); Alkaline Phosphatase 103 U/L (46-116); Anion Gap 11.4; Aspartate Amino Transferase 20 U/L (15-37); BUN Creatinine Ratio 15.3; Bilirubin Total 0.7 mg/dL (0.2-1.0); Calcium 9.2 mg/dL (8.5-10.1); Carbon Dioxide 27.6 mmol/L (21.0-32.0); Chloride 104 mmol/L (98-107); Chol HDL Ratio 4.6; Cholesterol 185 mg/dL (<=200); Estimated GFR (African America >60 (>=60 mL/min/1.73m^2); Estimated GFR (Non-African Ame >60 (>=60 mL/min/1.73m^2); Globulin 4.1 g/dL; Glucose 95 mg/dL (74-106); HDL Cholesterol 40 mg/dL (40-60); Sodium 139 mmol/L (136-145); Total Protein 7.8 g/dL (6.4-8.2); Triglycerides 159 mg/dL (<=150); VLDL CHOLESTEROL 31.8 mg/dL
[2024-05-18 10:39] LABS: Prostate Specific Antigen Scrn 1.38 ng/mL (<=4.00)
== END 2024-05-18 07:54 | disposition home or self-care (01) ==
LOC: LAB 08:00
PROVIDERS: PCP Internal Medicine; Visit Provider Internal Medicine
DX: E78.00 Pure hypercholesterolemia, unspecified (principal); Z12.5 Encounter for screening for malignant neoplasm of prostate; I10 Essential (primary) hypertension; Z79.899 Other long term (current) drug therapy
CPT/HCPCS: 36415; 80053; 80061; 85025; G0103